=== PATIENT | male | born 1955 | race Caucasian/White ===

== ENCOUNTER 2023-12-22 09:57 | Outpatient (CLI) | payer MEDICARE | END 2023-12-22 09:58 | disposition home or self-care (01) | LOC: BICCT 09:57 | PROVIDERS: ATTEND Family Medicine | DX: R93.89 Abnormal findings on diagnostic imaging of other specified body structures (principal); M95.4 Acquired deformity of chest and rib; I70.90 Unspecified atherosclerosis; J98.4 Other disorders of lung | CPT/HCPCS: 71250 ==

== ENCOUNTER 2025-04-24 05:55 | Observation (INO) | payer MEDICARE ==
[2025-04-10 15:40] VITALS: BMI 29.5
[2025-04-24] MEDS ORDERED: LevoFLOXacin D5W 500 mg (100 mL) BAG ONE (06:23)
[2025-04-24] MEDS ORDERED: Rocuronium Bromide 10 MG/ML (10ML VIAL) ONE (06:53)
[2025-04-24] MEDS ORDERED: PROPOFOL 20 ML ONE (06:53)
[2025-04-24] MEDS ORDERED: fentaNYL PF 100 MCG/2 ML SYRINGE ONE (06:53)
[2025-04-24] MEDS ORDERED: Iopamidol 100 ML FS ONE (07:14)
[2025-04-24] MEDS ORDERED: diphenhydrAMINE 50 MG/ML VIAL ONE (07:17)
[2025-04-24] MEDS ORDERED: diphenhydrAMINE 50 MG/ML VIAL IVP SCH (07:30)
[2025-04-24] MEDS ORDERED: Hydrocortisone Sod Succ/PF 100 mg/2 ml Vial IVP SCH (07:30)
[2025-04-24] MEDS ORDERED: SUGAMMADEX SODIUM 200 MG/2 ML VIAL ONE (07:49)
[2025-04-24] MEDS ORDERED: PHENYLEPHRINE-NS 100 MCG/ML 10 ML SYRINGE ONE (07:52)
[2025-04-24] MEDS ORDERED: Glycopyrrolate 0.2 MG/ML 5 ML SYRINGE ONE (09:42)
[2025-04-24] MEDS ORDERED: NEOSTIGMINE 3 MG/3 ML SYRINGE ONE (09:42)
[2025-04-24] MEDS ORDERED: Hyoscyamine SL 0.125 MG TAB ONE (10:27)
[2025-04-24] MEDS ORDERED: hydrALAZINE 20 MG/ML VIAL SLOW IVP PRN (14:24)
[2025-04-24] MEDS ORDERED: Mag-Al 1200 mg/1200 mg/30 ML UDCUP PO PRN (14:24)
[2025-04-24] MEDS ORDERED: diphenhydrAMINE 50 MG/ML VIAL IVP PRN (14:24)
[2025-04-24] MEDS ORDERED: HYDROcodone/Acetaminophen 5/325 mg Tablet PO PRN ×2 (14:24)
[2025-04-24] MEDS ORDERED: Ondansetron PF 4 MG/2 ML Vial IVP PRN (14:24)
[2025-04-24] MEDS ORDERED: Acetaminophen 500 MG TAB PO PRN (14:24)
[2025-04-24] MEDS ORDERED: Spironolactone 25 MG TAB PO PRN (14:26)
[2025-04-24] MEDS ORDERED: Non-Formulary Item 1 EACH (Acetaminophen [Tylenol Arthritis] 650 MG Tablet.Er) PO PRN (14:26)
[2025-04-24 15:30] LABS: #Basophils 0.03 10x3/uL (0.0-0.2); #Eosinophils 0.03 10x3/uL (0.0-0.7); #Monocytes 0.78 10x3/uL (0.11-0.59); #Neutrophils 8.12 10x3/uL (1.40-6.50); %Basophils 0.3 % (0.0-1.0); %Eosinophils 0.3 % (0.0-10.0); %Lymphocytes 12.3 % (21.0-51.0); %Monocytes 7.6 % (0.0-10.0); %Neutrophils 79.2 % (42.0-75.0); Hematocrit 46.8 % (42.0-52.0); Hemoglobin 15.4 g/dL (14.0-18.0); Mean Corpuscular Hemoglobin 32.2 pg (27.0-31.0); Mean Corpuscular Volume 97.7 fL (78.0-98.0); Platelet Count 119 10x3/uL (130-400); Red Blood Cell (RBC) Count 4.79 mill/uL (4.70-6.10); White Blood Cell (WBC) Count 10.25 10x3/uL (4.8-10.8)
[2025-04-24 15:40] LABS: Anion Gap 10 mmol/L (10-20); BUN (Urea Nitrogen) 15 mg/dL (8.4-25.7); Calc. Creatinine Clearance 130 mL/min (70-130); Calcium 8.4 mg/dL (7.8-10.44); Carbon Dioxide 23 mmol/L (23-31); Chloride 107 mmol/L (98-107); Glucose 114 mg/dL (80-115); Potassium 4.0 mmol/L (3.5-5.1); Sodium 136 mmol/L (136-145)
[2025-04-24 16:03] LABS: Macrocytosis SLIGHT = 6-15 cells HPF (0-5); Platelet Adequacy Comment Platelets Decreased; Polychromasia SLIGHT = 2-3 cells HPF (0-2)
[2025-04-24] MEDS: Furosemide 20 MG TAB PO SCH (16:10)
[2025-04-24 16:37] LABS: #Basophils Less than 0.03 10x3/uL (0.0-0.2); #Eosinophils Less than 0.03 10x3/uL (0.0-0.7); #Monocytes 0.86 10x3/uL (0.11-0.59); #Neutrophils 7.68 10x3/uL (1.40-6.50); %Basophils 0.1 % (0.0-1.0); %Eosinophils 0.1 % (0.0-10.0); %Lymphocytes 13.8 % (21.0-51.0); %Monocytes 8.6 % (0.0-10.0); %Neutrophils 77.0 % (42.0-75.0); Hematocrit 44.8 % (42.0-52.0); Hemoglobin 15.2 g/dL (14.0-18.0); Mean Corpuscular Hemoglobin 32.8 pg (27.0-31.0); Mean Corpuscular Volume 96.8 fL (78.0-98.0); Platelet Count 124 10x3/uL (130-400); Red Blood Cell (RBC) Count 4.63 mill/uL (4.70-6.10); White Blood Cell (WBC) Count 9.98 10x3/uL (4.8-10.8)
[2025-04-24 16:47] LABS: Anion Gap 11 mmol/L (10-20); BUN (Urea Nitrogen) 14 mg/dL (8.4-25.7); Calc. Creatinine Clearance 132 mL/min (70-130); Calcium 8.4 mg/dL (7.8-10.44); Carbon Dioxide 23 mmol/L (23-31); Chloride 105 mmol/L (98-107); Glucose 113 mg/dL (80-115); Potassium 4.1 mmol/L (3.5-5.1); Sodium 135 mmol/L (136-145)
[2025-04-24] MEDS: Hyoscyamine SL 0.125 MG TAB SL SCH (17:38)
[2025-04-24] MEDS: Carvedilol 6.25 MG TAB PO SCH (20:48)
[2025-04-24] MEDS: Famotidine/PF 20 mg/2ml Vial SLOW IVP SCH (20:48)
[2025-04-24] MEDS: Sacubitril 24MG/Valsartan 26 MG TAB PO SCH (20:49)
[2025-04-25 05:31] LABS: Anion Gap 12 mmol/L (10-20); BUN (Urea Nitrogen) 12 mg/dL (8.4-25.7); Calc. Creatinine Clearance 121 mL/min (70-130); Calcium 8.7 mg/dL (7.8-10.44); Carbon Dioxide 24 mmol/L (23-31); Chloride 107 mmol/L (98-107); Glucose 107 mg/dL (80-115); Potassium 4.0 mmol/L (3.5-5.1); Sodium 139 mmol/L (136-145)
[2025-04-25] MEDS: cefTRIAXone\\ROCEPHIN 1 GM in Sodium Chloride 0.9% 100 ML IVPB SCH (05:31)
[2025-04-25 05:37] LABS: #Basophils Less than 0.03 10x3/uL (0.0-0.2); #Eosinophils 0.09 10x3/uL (0.0-0.7); #Monocytes 1.12 10x3/uL (0.11-0.59); #Neutrophils 5.92 10x3/uL (1.40-6.50); %Basophils 0.2 % (0.0-1.0); %Eosinophils 1.0 % (0.0-10.0); %Lymphocytes 17.3 % (21.0-51.0); %Monocytes 12.9 % (0.0-10.0); %Neutrophils 68.4 % (42.0-75.0); Hematocrit 46.9 % (42.0-52.0); Hemoglobin 15.6 g/dL (14.0-18.0); Mean Corpuscular Hemoglobin 32.4 pg (27.0-31.0); Mean Corpuscular Volume 97.5 fL (78.0-98.0); Platelet Count 134 10x3/uL (130-400); Red Blood Cell (RBC) Count 4.81 mill/uL (4.70-6.10); White Blood Cell (WBC) Count 8.67 10x3/uL (4.8-10.8)
[2025-04-25] MEDS: Furosemide 20 MG TAB PO SCH (05:42)
[2025-04-25 08:32] VITALS: BP 131/84; TEMP 97.9
[2025-05-07 08:14] LABS: CA Oxalate Monohydrate 100 % (.); Color Brown (.); Stone Weight 24 mg (.)
[2025-05-07 12:13] LABS: CA Oxalate Monohydrate 100 % (.); Color Brown (.); Stone Weight 114 mg (.)
== END 2025-04-25 10:56 | disposition home or self-care (01) ==
LOC: SDC 05:55 → SURG A 14:06
PROVIDERS: ADMIT Urology; ATTEND Urology
PROC: 0TCB8ZZ Extirpation of Matter from Bladder, Via Natural or Artificial Opening Endoscopic (ICD-10-PCS; principal; 2025-04-24)
PROC: 0TC08ZZ Extirpation of Matter from Right Kidney, Via Natural or Artificial Opening Endoscopic (ICD-10-PCS; 2025-04-24)
PROC: 0T768DZ Dilation of Right Ureter with Intraluminal Device, Via Natural or Artificial Opening Endoscopic (ICD-10-PCS; 2025-04-24)
DX: N13.2 Hydronephrosis with renal and ureteral calculous obstruction (principal); N21.0 Calculus in bladder; N40.0 Benign prostatic hyperplasia without lower urinary tract symptoms; N52.9 Male erectile dysfunction, unspecified; N28.1 Cyst of kidney, acquired; N35.819 Other urethral stricture, male, unspecified site; I25.10 Atherosclerotic heart disease of native coronary artery without angina pectoris; I25.5 Ischemic cardiomyopathy; I11.0 Hypertensive heart disease with heart failure; I50.22 Chronic systolic (congestive) heart failure; E78.5 Hyperlipidemia, unspecified; Z95.1 Presence of aortocoronary bypass graft; Z90.89 Acquired absence of other organs; Z90.49 Acquired absence of other specified parts of digestive tract; Z91.041 Radiographic dye allergy status; Z91.013 Allergy to seafood; Z88.8 Allergy status to other drugs, medicaments and biological substances; Z79.82 Long term (current) use of aspirin; Z79.899 Other long term (current) drug therapy
CPT/HCPCS: 74018; 74420; 80048 ×3; 82365; 85025 ×3; A4333; A4340; C1747; C1758; C1769 ×2; C2617; C9761; J0696; J1200; J1308 ×2; J1720; J1956; J2704; J3010; J7030 ×2; Q9967 ×2; 36415; 88300